=== PATIENT | male | born 1975 | race Caucasian/White ===

== ENCOUNTER 2021-02-14 12:01 | Emergency (ER) | payer OTHER ==
[~2021-02-14] VITALS: Ht 175.3 cm; Wt 86.2 kg
[2021-02-14] MEDS ORDERED: LISINOPRIL20 MG PO (12:16)
[2021-02-14 12:39] LABS: ABSOLUTE BASOPHILS 0.1 thou/uL (0.0-0.2); ABSOLUTE EOSINOPHILS 0.8 thou/uL (0.0-0.7); ABSOLUTE LYMPHOCYTES 3.6 thou/uL (0.8-5.3); ABSOLUTE MONOCYTES 0.8 thou/uL (0.0-1.2); ABSOLUTE NEUTROPHILS 6.8 thou/uL (1.6-8.1); BASOPHILS 0.5 %; EOSINOPHILS 6.8 %; HEMATOCRIT 59.9 % (42.0-52.0); HEMOGLOBIN 19.5 gm/dL (14.0-18.0); LYMPHOCYTES 29.4 %; MCH 27.3 pg (26.0-34.0); MCHC 32.5 g/dL (28.0-37.0); MCV 84.1 fL (80.0-100.0); MPV 6.8 fl. (7.2-11.1); NUCLEATED RBCS 0 /100WBC; PLATELET COUNT* 349 thou/uL (150-400); POLYS 56.3 %; RBC 7.12 mil/uL (4.50-6.00); RDW-CV 14.8 % (10.5-14.5); WBC 12.1 thou/uL (4.0-11.0)
[2021-02-14 12:46] LABS: CALCIUM 9.5 mg/dL (8.5-10.1); CREATININE 1.3 mg/dL (0.6-1.3); POTASSIUM 3.9 mmol/L (3.5-5.1)
[2021-02-14 12:50] LABS: ALBUMIN 3.8 g/dL (3.4-5.0); TOTAL BILIRUBIN 0.4 mg/dL (<0.1-1.0); TOTAL PROTEIN 7.9 g/dL (6.4-8.2)
[2021-02-14] MEDS ORDERED: PEPTO-BISMOL262 M1 PO (13:58)
[2021-02-14] MEDS ORDERED: LOPERAMIDE 2 MG2 M1 PO (13:58)
[2021-02-14] MEDS ORDERED: CIPRO500 M1 PO (13:58)
[2021-02-14 14:16] VITALS: BP 165/95
== END 2021-02-14 14:16 | disposition home or self-care (01) ==
LOC: M.ERS 12:01
PROVIDERS: Physician Assistant
DX: R19.7 Diarrhea, unspecified (principal); R10.84 Generalized abdominal pain